=== PATIENT | male | born 1995 | race African-American/Black ===

== ENCOUNTER 2024-03-17 11:50 | Emergency (ER) | payer OTHER, SELFPAY ==
[2024-03-17 12:08] VITALS: BP 123/73; PULSE 74; RESP 14; TEMP 36.6; O2SAT 99; BMI 28.3
--- NOTE | 2024-03-17 13:27 | PC.NURSE ---
Pt assessed PMS intact.
--- NOTE | 2024-03-17 13:40 | ED.SKABFB ---
HPI - Skin/Abscess/Foreign Bdy General Chief complaint: Skin/Abscess/Foreign Body Stated complaint: L Foot Toe Poss Infection Time Seen by Provider: 03/17/24 12:55 Source: patient Mode of arrival: Ambulatory Limitations: no limitations History of Present Illness HPI narrative: 28-year-old male with no history of diabetes, has left 4th toe infection and swelling symptoms for the last couple of days, some swelling to the dorsum of the foot as well. No fevers or chills. No redness or streaking of the foot or ankle or foreleg. No other injuries. He has not recall any punctures or bites or stings. He has not had any nail procedures on the foot. No sores between the foot. He denies allergies to any known antibiotics or other medications Related Data Previous Rx's Medication Instructions Recorded sulfamethoxazole 800 1 tab PO BID #14 tabs 03/17/24 mg-trimethoprim 160 mg tablet (Bactrim DS) Allergies Allergy/AdvReac Type Severity Reaction Status Date / Time No Known Drug Allergies Allergy Verified 03/17/24 12:28 Review of Systems Review of Systems Narrative: see HPI Patient History Social History Smoking Status: Never smoker Smoking Status: Never smoker alcohol intake frequency: other Exam Narrative Exam Narrative: GENERAL: Well-developed patient, in mild distress. HEAD: Atraumatic. Normocephalic. EYES: Pupils equal round and reactive. Extraocular motions intact. No scleral icterus. No injection or drainage. ENT: Nose without bleeding, purulent drainage. Throat without erythema, tonsillar hypertrophy or exudate. Airway patent. NECK: Trachea midline. Non tender CARDIOVASCULAR: Regular rate and rhythm without murmurs, gallops, or rubs. RESPIRATORY: Clear to auscultation. Breath sounds equal bilaterally. No wheezes, rales, or rhonchi. GASTROINTESTINAL: Abdomen soft, non-tender, nondistended. EXTREMITIES: Left foot with some distal dorsal erythema, left 4th toe periungual abscess, tender, not expressible. BACK: Nontender without deformity or crepitance. No flank tenderness. NEURO: AOx3. SKIN: No rash or erythema of visible areas Initial Vital Signs Initial Vital Signs: Vital Signs Temperature 97.9 F 03/17/24 12:08 Pulse Rate 74 03/17/24 12:08 Respiratory Rate 14 03/17/24 12:08 Blood Pressure 123/73 03/17/24 12:08 Pulse Oximetry 99 03/17/24 12:08 Oxygen Delivery Method Room Air 03/17/24 12:08 Procedures Abscess I/D I&D #1: Time of procedure: 14:02 Site: foot (Left 4t periungual abscess) Side (if applicable): left Local Anesthetic: lidocaine 1% (2 cc alisha digital block with good effect) Amount of anesthesia used (mL): 2 Technique: incised with #11 blade Amount of fluid expressed (mL): 1 Irrigation: No Packing used?: none Complications: other (Wound culture sent) Course Orders Ordered: ED Orders 03/17/24 14:00 Wound Culture and Gram Stain Stat Discontinued Medications Lidocaine/Epinephrine (Lidocaine 1% W/Epi) 20 ml INJ INTRA-OP ONE Stop: 03/17/24 13:51 Last Admin: 03/17/24 14:10 Dose: 20 ml Documented By: ADRIAN Trimethoprim/Sulfamethoxazole (Trimeth/Sulfa 160/800 (Ds) Tablet) 1 tab PO NOW ONE Stop: 03/17/24 14:04 Last Admin: 03/17/24 14:15 Dose: 1 tab Documented By: ADRIAN Vital Signs Vital signs: Vital Signs - 8 hr 03/17/24 12:08 03/17/24 14:20 Temperature 97.9 F Pulse Rate 74 66 Respiratory Rate 14 16 Blood Pressure 123/73 117/67 Pulse Oximetry 99 99 Oxygen Delivery Method Room Air Room Air MDM - Skin/Abscess/Foreign Bdy MDM Narrative Medical decision making narrative: 26-year-old male with left toe periungual infection/abscess, some swelling to the adjacent dorsal foot, component of cellulitis suspected. No known drug allergies. Discussed incision and drainage, without hemiblock or with hemiblock, patient does prefer digital block. Verbal consent for I and D, alisha digital block of the 4th left toe medial aspect, 2 cc, good effect, I and D stab incision, expression of yellow purulence, wound culture sent, further expressed until flat, well tolerated. 1st dose antibiotics, we will presume staph infection, covered for MRSA, p.o. Bactrim 1st dose, prescription to be sent to his pharmacy in [facility]. Wound recheck advised with regular provider in 2 days, also check wound culture results of the time. Return precautions discussed. Stable for discharge Discharge Plan Departure Patient Disposition: Home Clinical Impression: Abscess of fourth toe, Cellulitis of foot Activity Restrictions/Additional Instructions: Toe infection left 4th toe, no injury or nail procedures, some slight swelling to the adjacent foot, possible cellulitis, due to abscess 4th toe periungual around the nail area. Verbal consent for incision and drainage, digital hemiblock with lidocaine injection with good effect, 11-blade stab incision, expression of white-yellow pus, wound culture sent. First dose of antibiotics Bactrim given, prescription sent to your pharmacy requested. Take oral antibiotics as directed. Consider room temperature water soak with gentle expression later today to remove any additional purulence. Advised wound check in the next couple of days, also to check the results of wound culture. Return to this/nearest emergency department for any change worsening symptoms or any concerns prior Avoid use of enclosed footwear, no boots for example at base. Until wound check in 2 days Prescriptions: New sulfamethoxazole-trimethoprim [Bactrim DS] 800-160 mg tablet 1 tab PO BID Qty: 14 0RF Stand Alone Forms: Patient Portal/API, Work Release Note
[2024-03-17] MEDS: LIDOCAINE 1% W/EPI 20 ML INJ (14:10)
[2024-03-17] MEDS: TRIMETH/SULFA 160/800 (DS) TABLET 1 TAB PO (14:15)
[2024-03-17 14:20] VITALS: BP 117/67; PULSE 66; RESP 16; O2SAT 99
== END 2024-03-17 14:20 | disposition home or self-care (01) ==
PROVIDERS: Emergency Provider Emergency Medicine
DX: L02.612 Cutaneous abscess of left foot (principal); L03.116 Cellulitis of left lower limb; B95.61 Methicillin susceptible Staphylococcus aureus infection as the cause of diseases classified elsewhere
CPT/HCPCS: 10060; 64450; 87070; 87075; 87077; 87147; 87186; 87205; 99283